=== PATIENT | female | born 1955 | race Caucasian/White ===

== ENCOUNTER 2017-04-30 07:54 | Outpatient (CLI) | payer OTHER ==
[~2017-04-30 07:54] MED LIST: ALEVE220 MG PO; FOSAMAX70 MG PO
--- NOTE | 2017-04-30 09:22 | DIAGNOSTIC IMAGING REPORT ---
PROCEDURE: US ABDOMEN ULTRASOUND-COMPLETE INDICATION: Right abdominal pain and palpable area right abdominal wall (after fall). History of renal calculi. TECHNIQUE: Ruff scale and color Doppler sonographic images of the abdomen were obtained. COMPARISON: Compared to abdominal ultrasound (is 07/25/2016), and CT pelvis (09/05/2013). FINDINGS: Scans of the right anterior lateral abdominal wall are normal and there is no evidence of soft tissue mass or hernia. Gallbladder and common duct (4 mm). No evidence of gallstones. are normal. Liver, spleen (8.6 cm), pancreas, aorta, and inferior vena cava are normal. Kidneys are borderline atrophic (right 8.9 cm, left 9.1 cm) with mild generalized cortical thinning (70 mm). No definite renal calculi are identified. No evidence of hydronephrosis. IMPRESSION: 1. No evidence of right abdominal wall mass or hernia. 2. Normal gallbladder. No evidence of gallstones. 3. Borderline atrophic change of the kidneys with mild cortical thinning. While findings appear unchanged, consider intrinsic renal disease. 4. No definite evidence of renal calculi.
--- NOTE | 2017-04-30 17:14 | DIAGNOSTIC IMAGING REPORT ---
PROCEDURE: MG BILATERAL SCREENING W/CAD INDICATION: Screening, family history of breast cancer in the mother TECHNIQUE: Standard CC and MLO views bilaterally. Computer aided detection was used. COMPARISON: 04/09/2016, 07/01/2013, 06/29/2013, 04/01/2012 FINDINGS: Moderately dense fibroglandular tissue is present bilaterally. No developing densities, areas of architectural distortion, or suspicious microcalcifications. IMPRESSION: 1. Stable mammograms without radiographic evidence of malignancy. RESULT CODE: 1- Negative. A. A negative report should not delay biopsy if a dominant or clinically suspicious mass is present. 10-15% of cancers are not identified by x-ray. B. A negative report may reinforce clinical impression. C. Adenosis and dense breasts may obscure an underlying neoplasm. D. False positive reports average 6-10%. E.. A yearly screening mammogram is recommended. A reminder letter will be scheduled.
== END 2017-04-30 23:00 ==
LOC: US SRH 07:54 → MAM SRH 09:00 → US SRH 23:00
DX: R10.11 Right upper quadrant pain (principal); Z12.31 Encounter for screening mammogram for malignant neoplasm of breast